=== PATIENT | male | born 1995 | race Caucasian/White ===

== ENCOUNTER 2021-07-21 13:13 | Emergency (ER) | payer OTHER, MEDICAID ==
[~2021-07-21] VITALS: Ht 188 cm; Wt 140.6 kg
[2021-07-21 13:18] VITALS: BP 138/76
[2021-07-21] MEDS ORDERED: OFLOS OP (13:49)
--- NOTE | 2021-07-21 13:57 | NUR ---
Pt d/c by PANTERA Howell.
== END 2021-07-21 13:57 | disposition home or self-care (01) ==
LOC: MED 13:13
DX: H16.001 Unspecified corneal ulcer, right eye (principal); Z79.899 Other long term (current) drug therapy
CPT/HCPCS: 99283

== ENCOUNTER 2023-12-31 21:20 | Emergency (ER) | payer MEDICAID, OTHER ==
[~2023-12-31] VITALS: Ht 182.9 cm; Wt 158.3 kg
[~2023-12-31 21:20] MED LIST: OFLOS OP
[2023-12-31 21:31] VITALS: BP 142/75; PULSE 91; RESP 20; TEMP 97.3; O2SAT 97
[2023-12-31] MEDS ORDERED: predniSONE 20 MG TAB PO ONE (22:30)
[2023-12-31] MEDS ORDERED: ALBU0.0912 IH ×2 (23:11→23:25)
[2023-12-31] MEDS ORDERED: PRED20TA5 PO ×2 (23:11→23:25)
[2023-12-31 23:17] LABS: FLU A ANTIGEN negative (NEGATIVE); FLU B ANTIGEN NEGATIVE (NEGATIVE)
[2023-12-31 23:23] VITALS: BP 142/75; PULSE 91; RESP 20; TEMP 97.3; O2SAT 97
== END 2023-12-31 23:23 | disposition home or self-care (01) ==
LOC: MED 21:20
DX: R06.02 Shortness of breath (principal); R21 Rash and other nonspecific skin eruption; Z20.822 Contact with and (suspected) exposure to COVID-19; Z79.899 Other long term (current) drug therapy
CPT/HCPCS: 71045; 87426; 87804; 99284; J7512; Q0092

== ENCOUNTER 2024-07-19 09:17 | Emergency (ER) | payer OTHER, MEDICAID ==
[~2024-07-19] VITALS: Ht 185.4 cm; Wt 160.1 kg
[~2024-07-19 09:17] MED LIST changes: +ALBU0.0912 IH; +PRED20TA5 PO
[2024-07-19 09:19] VITALS: BP 114/84; PULSE 85; RESP 16; TEMP 98; O2SAT 94
[2024-07-19] MEDS: KETOROLAC 30 MG/ML VIAL IM ONE (10:23)
[2024-07-19] MEDS ORDERED: DICL20GE TP (10:25)
[2024-07-19] MEDS ORDERED: CYCL-711 PO (10:25)
== END 2024-07-19 10:55 | disposition home or self-care (01) ==
LOC: MED 09:17
DX: S76.912A Strain of unspecified muscles, fascia and tendons at thigh level, left thigh, initial encounter (principal); E11.9 Type 2 diabetes mellitus without complications; I10 Essential (primary) hypertension; E32.9 Disease of thymus, unspecified; Z79.899 Other long term (current) drug therapy; X58.XXXA Exposure to other specified factors, initial encounter; Y92.89 Other specified places as the place of occurrence of the external cause; Y93.89 Activity, other specified; Y99.8 Other external cause status
CPT/HCPCS: 96372; 99283; J1885